=== PATIENT | male | born 1975 | race Two or more races ===

== ENCOUNTER 2024-07-08 09:43 | Emergency (ER) | payer OTHER ==
[~2024-07-08] VITALS: Ht 172.7 cm; Wt 103.8 kg
[2024-07-08 10:06] VITALS: BP 138/81; PULSE 94; RESP 20; O2SAT 97
[2024-07-08] MEDS ORDERED: CYCL-839 PO (11:38)
[2024-07-08] MEDS ORDERED: IBUP-1456 PO (11:38)
== END 2024-07-08 11:49 | disposition home or self-care (01) ==
LOC: ER 09:43
DX: S16.1XXA Strain of muscle, fascia and tendon at neck level, initial encounter (principal); S39.012A Strain of muscle, fascia and tendon of lower back, initial encounter; Z79.899 Other long term (current) drug therapy; V49.88XA Car occupant (driver) (passenger) injured in other specified transport accidents, initial encounter; Y93.I9 Activity, other involving external motion; Y92.488 Other paved roadways as the place of occurrence of the external cause; Y99.8 Other external cause status
CPT/HCPCS: 72040; 72100